=== PATIENT | male | born 1990 | race Caucasian/White ===

== ENCOUNTER 2021-10-11 07:26 | Emergency (ER) | payer BC ==
[~2021-10-11] VITALS: Ht 175.3 cm; Wt 80.0 kg
[2021-10-11] MEDS ORDERED: IBUPROFEN 800MG TABLET PO ONE (08:45)
[2021-10-11] MEDS ORDERED: IBUP-2029 MT (09:31)
[2021-10-11] MEDS ORDERED: CYCL10TA7 MT (09:32)
[2021-10-11 10:09] VITALS: BP 112/74
== END 2021-10-11 10:09 | disposition home or self-care (01) ==
LOC: ER 07:26
DX: S46.912A Strain of unspecified muscle, fascia and tendon at shoulder and upper arm level, left arm, initial encounter (principal); V49.40XA Driver injured in collision with unspecified motor vehicles in traffic accident, initial encounter; Y93.89 Activity, other specified; Y92.89 Other specified places as the place of occurrence of the external cause; Y99.8 Other external cause status
CPT/HCPCS: 73000; 73030; 73120; 99284